=== PATIENT | female | born 1970 | race American Indian/Alaskan Native ===

== ENCOUNTER 2021-06-17 04:07 | Emergency (ER) | payer OTHER ==
--- NOTE | 2021-06-17 06:38 | Emergency Department Report ---
Upper Extremity - HPI Chief Complaint: Extremity Injury, Upper Stated Complaint: PAIN IN RIGHT ARM Time Seen by Provider: 06/17/21 06:01 Upper Extremity: Right Shoulder Occurred When: 1 Day Mechanism: Unsure Severity: moderate Symptoms: Yes Pain with Movement, Yes Limited Range of Movement, No Deformity, No Numbness, No Weakness, No Swelling, No Bruising/Ecchymosis, No Laceration or Abrasion Other History: Patient presents secondary to right shoulder pain. She works for [employer]. When she got home last night, she took a shower. She noticed that her right shoulder seem to be sore. She took 2 Tylenol and went to bed. She had difficulty sleeping because of the pain. She states that she kept tossing and turning. This morning, she decided to be seen because of the pain. She does report that while she was waiting to be seen here, her left shoulder started to hurt. There was no history of injury to the left shoulder. She does not recall lifting anything heavy. She certainly had no fall or injury. Pain is worse with movement and she does report limited range of motion at the right shoulder but not the left. ED Review of Systems ROS: Stated complaint: PAIN IN RIGHT ARM Other details as noted in HPI Comment: All other systems reviewed and negative Constitutional: denies: fever Eyes: denies: vision change ENT: denies: throat pain Respiratory: denies: cough Cardiovascular: denies: chest pain Endocrine: denies: unexplained weight loss Gastrointestinal: nausea (Associated with the pain) Genitourinary: denies: dysuria Musculoskeletal: as per HPI Skin: denies: rash Neurological: paresthesias (Right arm). denies: headache Hematological/Lymphatic: denies: easy bruising ED Past Medical Hx - Past Medical History Previous Medical History?: No - Surgical History Past Surgical History?: No - Family History Family history: no significant - Medications Home Medications: Home Medications Medication Instructions Recorded Confirmed Last Taken Type Ibuprofen [Motrin] 600 mg PO Q8H PRN #30 tablet 06/17/21 Unknown Rx Upper Extremity Exam - Exam General: Vital signs noted. No distress. Alert and acting appropriately. Head and Torso: No HEENT Abnormality (Normocephalic/atraumatic. PERRL. EOMI. Oropharynx clear.), No Neck Tenderness (Supple without meningismus), No Chest/Lungs Abnormality (Regular rate and rhythm. Clear bilaterally.), No Abdominal Tenderness (No rebound or guarding), No Back Tenderness (No CVA tenderness) Shoulder Exam: Yes Shoulder Tenderness (Right side over the AC joint), Yes Normal Range of Motion in Shoulder (Limited extension and abduction), No Clavicle Tenderness, No Shoulder Deformity, No AC Joint Tenderness Arm Exam: No Arm/Humerus Tenderness, No Arm Deformity Elbow: Yes Normal Range of Motion in Elbow, No Elbow Tenderness Forearm: No Forearm Tenderness, No Forearm Deformity Wrist: Yes Normal ROM in Wrist, No Wrist Tenderness ED Course - Reevaluation(s) Reevaluation #1: 06/17/21 06:40 EKG was ordered. Old records noted. ED Medical Decision Making - EKG Data -: EKG Interpreted by Me - EKG Data 06/17/21 07:21 [id number]-EKG shows sinus bradycardia 58. Intervals are normal including a QRS of 78 and a QT corrected of 396. Patient has no ST elevation suggestive of STEMI. There is no ST depression suggestive of ischemia. There is no old EKG for comparison. - Medical Decision Making Patient presents with right shoulder pain that appears to be nontraumatic. However she does have tenderness with limited range of motion consistent with some sort of strain or injury. Symptoms are not exertional or pleuritic. She did report some left shoulder pain that was also reproducible with movement and palpation. Again, there was no injury. EKG was noted. I really do not believe this clinically represents ACS. There is no suggestion of fracture or dislocation. She was treated symptomatically. It would be unlikely for this to be a polyarticular septic arthritis. Critical Care Time: No Critical care attestation.: If time is entered above; I have spent that time in minutes in the direct care of this critically ill patient, excluding procedure time. ED Disposition Clinical Impression: Right shoulder pain Qualifiers: Chronicity: acute Qualified Code(s): M25.511 - Pain in right shoulder Trapezius strain Qualifiers: Encounter type: initial encounter Laterality: left Qualified Code(s): S46.812A - Strain of other muscles, fascia and tendons at shoulder and upper arm level, left arm, initial encounter Disposition: HOME / SELF CARE / HOMELESS Is pt being admited?: No Condition: Stable Instructions: Shoulder Pain, Muscle Strain, [id number], How to Use Cold Therapy Additional Instructions: Ice and rest in the arms and shoulders. Follow-up with your regular doctor. Drink plenty of water. Return for problems or concerns. Prescriptions: Ibuprofen [Motrin] 600 mg PO Q8H PRN #30 tablet PRN Reason: Pain Referrals: PRIMARY CARE, [Referring] - 3-5 Days VALERI CHOUDHURY MD [Staff Physician] - 3-5 Days
--- NOTE | 2021-06-17 14:43 | Electrocardiograph Report ---
[facility] Test Date: 2021-06-17 Test Time: 07:16:41 Pat Name: TYRONE VILLAFUERTE Department: Room: Gender: F Readiness Paraprofessional: MIMI : [id number] Requested By: SONAM ESCUDERO Order Number: [id number] Reading MD: Niya Hogan Measurements Intervals [place] Rate: 58 P: 3 [place]: 202 QRS: 33 QRSD: 78 T: 27 QT: 403 QTc: 396 Interpretive Statements Sinus bradycardia Borderline prolonged [place] interval Probable anteroseptal infarct, old No previous ECG available for comparison Electronically Signed On 06-17-2021 14:42:40 EST by Niya Hogan
== END 2021-06-17 10:25 | disposition left against medical advice (07) ==
LOC: ED 04:07
DX: S46.812A Strain of other muscles, fascia and tendons at shoulder and upper arm level, left arm, initial encounter (principal); M25.511 Pain in right shoulder; X58.XXXA Exposure to other specified factors, initial encounter; Y93.89 Activity, other specified; Y92.89 Other specified places as the place of occurrence of the external cause; Y99.8 Other external cause status
CPT/HCPCS: 93005; 93010; 99281